=== PATIENT | male | born 1965 | race Caucasian/White ===

== ENCOUNTER 2021-01-28 11:03 | Day surgery (SDC) | payer SELFPAY ==
[~2021-01-28] VITALS: Ht 182.9 cm; Wt 99.8 kg
[~2021-01-28 11:03] MED LIST: BAYER CHEWABLE81 MG PO; COZAAR100 MG PO; GLUCOPHAGE500 MG PO; NIASPAN500 MG PO; ZOCOR40 MG PO; ZYLOPRIM100 MG PO
[2021-01-28 11:51] LABS: BASOPHILS 0.4 % (0-2); EOSINOPHILS 2.7 % (0-7); HEMATOCRIT 40.7 % (42.0-54.0); HEMOGLOBIN 13.7 g/dL (13.5-17.5); LYMPHOCYTES 28.8 % (15-50); MCH 31.6 pg (26.0-34.0); MCHC 33.6 g/dL (31.0-37.0); MCV 94.1 fL (80.0-100.0); MEAN PLATELET VOLUME 6.2 fL (7.4-10.4); MONOCYTES 6.8 % (2-11); NEUTROPHILS 61.3 % (40-80); PLATELET COUNT 184 10x3/uL (130-400); RBC 4.33 10x6/uL (4.20-6.10); RDW 13.8 % (11.5-14.5); WBC 6.2 10x3/uL (4.8-10.8)
[2021-01-28 12:07] LABS: CALC OSMOLALITY 282 mosm/kg (275-300); CALCIUM 9.1 mg/dL (8.5-10.1); CARBON DIOXIDE 30.4 mmol/L (21.0-32.0); CHLORIDE - SERUM 104 mmol/L (98-107); CREATININE - SERUM 0.8 mg/dL (0.6-1.3); GLUCOSE 134 mg/dL (74-106); POTASSIUM - SERUM 4.4 mmol/L (3.5-5.1); SODIUM 140 mmol/L (136-145); UREA NITROGEN 18 mg/dL (7-18); eGFR NON AFRICAN AMERICAN > 90 mL/min (90-120)
[2021-01-28 13:26] VITALS: BP 125/69; Ht 182.9 cm; Wt 99.8 kg
--- NOTE | 2021-01-28 16:57 | NUR ---
DISCHARGE INSTRUCTIONS GIVEN AND PT VERBALIZED AN UNDERSTANDING. IV D/C'D WITH CANNULA INTACT, PRESSURE HELD AND DRSG PLACED.ASSISTED PT WITH DRSG. EFFECTIVE PND AND DISCHARGED WITHOUT C/O
--- NOTE | 2021-01-29 08:17 | OP ---
PATIENT NAME: MONICA SCHILLING MEDICAL RECORD: [id number] :61 [facility] ADMISSION DATE: SURGEON: BRAD SERVIN DO DATE OF OPERATION: 01/28/2021 PROCEDURE PERFORMED: Right distal radius open reduction internal fixation. PREOPERATIVE DIAGNOSIS: Displaced right extraarticular 2-piece distal radius fracture, closed. POSTOPERATIVE DIAGNOSIS: Displaced right extraarticular 2-piece distal radius fracture, closed. INDICATIONS: Mr. Schilling is a 55-year-old male who fell a couple of days ago onto outstretched hand and sustained a distal radius fracture, extraarticular, closed. He was seen in urgent care and sent to my clinic. I set him up for surgery today. He is aware of the risks of this including infection, bleeding, damage to nerves and vessels, specifically the median nerve, continued pain, loss of motion of the wrist, failure of implants, malunion, and nonunion, and he signed the consent. SURGEON: Brad Servin DO DESCRIPTION OF PROCEDURE: The patient received a block by anesthesia in the preoperative area and taken to the operative suite and laid in supine position, given general anesthetic, given 2 grams Ancef, sedated, and LMA was placed. The right upper extremity was then prepped and draped in sterile fashion. Timeout was performed, everyone was in agreement of the correct side, site, patient and procedure. I then exsanguinated the right upper extremity with an Esmarch and tourniquet was inflated to 250 mmHg, it was up for 22 minutes. I then made an incision over the flexor carpi radialis tendon. Made careful dissection down to the pronator quadratus and peeled it off the radius on the radial side. I then reduced the fracture after cleaning off the muscle off the radius. I then put the Acumed plate on and pinned it into place. Once in adequate position, I then put a screw into the shaft and then 4 distal screws, 3 of them were 24 mm in length, the other one was 22. I then put a 26 mm in the radial styloid. I then put in 2 shaft screws, 14 and 16 in length. The initial shaft screw was I believe 14 as well. I then let the tourniquet down. Any bleeding was coagulated with a pickup and Bovie. Kushal Renee, certified surgical territory manager, then closed the skin with 3-0 Vicryl in inverted interrupted fashion and Prineo glue on the skin, dressed them with Adaptic, 4 x 4s, cast padding and a volar splint in place and secured with an Chapito wrap. He was awakened and taken to recovery in stable condition. BLOOD LOSS: Minimal. COMPLICATIONS: None. TRANSINT:[id number] Voice Confirmation ID: [id number] DOCUMENT ID: [id number] OPERATIVE REPORT [id number] MONICA SCHILLING,BRAD Ley DO at 0817 CC: [id number] DICTATION DATE: 01/28/211851 BAG TESTER: 01/28/212019 [facility] 01/28/21 [id number] [place] [address]
== END 2021-01-28 16:48 | disposition home or self-care (01) ==
LOC: D.OPS 11:03
PROVIDERS: Anesthesiology; ATTEND Orthopaedic Surgery
DX: S52.551A Other extraarticular fracture of lower end of right radius, initial encounter for closed fracture (principal); X58.XXXA Exposure to other specified factors, initial encounter; M25.531 Pain in right wrist